=== PATIENT | male | born 1995 | race African-American/Black ===

== ENCOUNTER 2019-08-10 13:21 | Emergency (ER) | payer MEDICAID ==
[~2019-08-10] VITALS: Ht 190.5 cm; Wt 70.0 kg
[~2019-08-10 13:21] MED LIST: ALBUTEROL
[2019-08-10] MEDS ORDERED: ALBUTEROL (0.083%) 2.5MG/3ML NEB HHN STA (13:33)
[2019-08-10] MEDS ORDERED: METHYLPREDNISOLONE SOD SUCC 125 MG/2 ML VIAL IV STA (13:33)
[2019-08-10] MEDS ORDERED: IPRATROPIUM BROMIDE (0.02%) 0.5MG/2.5ML NEB HHN STA (13:33)
[2019-08-10] MEDS ORDERED: ALBUTEROL (0.083%) 2.5MG/3ML NEB ONE (14:26)
[2019-08-10] MEDS ORDERED: IPRATROPIUM BROMIDE (0.02%) 0.5MG/2.5ML NEB ONE (14:27)
[2019-08-10 14:31] LABS: BASOPHILS % 0.2 % (0.0-2.0); EOSINOPHILS % 4.4 % (0.0-5.0); HEMATOCRIT. 48.2 % (42.0-52.0); HEMOGLOBIN. 16.3 g/dL (14.0-18.0); LYMPHOCYTES % 9.4 % (20.0-50.0); MEAN CORPUSCULAR HEMOGLOBIN 29.8 pg (28.0-32.0); MEAN CORPUSCULAR VOLUME 88.3 fL (80.0-94.0); MONOCYTES % 7.6 % (2.0-8.0); NEUTROPHILS % 78.4 % (40.0-76.0); PLATELET 252 x1000/uL (130-400); RED BLOOD CELL COUNT 5.46 mill/uL (4.7-6.1); RED CELL DISTRIBUTION WIDTH 12.8 % (11.6-14.6)
[2019-08-10 14:38] LABS: CHLORIDE 108 mEq/L (98-107)
[2019-08-10] MEDS ORDERED: SODIUM CHLORIDE 0.9% 1,000 ML IV ONE (15:15)
[2019-08-10 16:49] VITALS: BP 137/68
== END 2019-08-10 16:54 | disposition home or self-care (01) ==
LOC: ER 13:21
DX: R06.03 Acute respiratory distress (principal); J45.901 Unspecified asthma with (acute) exacerbation; F12.10 Cannabis abuse, uncomplicated
CPT/HCPCS: 36415; 71045; 80053; 85025; 93005; 94640; 96374; 99284; J2930; J7030; J7611; Z7610

== ENCOUNTER 2019-09-09 21:03 | Emergency (ER) | payer MEDICAID ==
[~2019-09-09] VITALS: Ht 188 cm; Wt 68.0 kg
[2019-09-09 22:52] VITALS: BP 122/64
== END 2019-09-09 22:53 | disposition home or self-care (01) ==
LOC: ER 21:46
DX: S60.460A Insect bite (nonvenomous) of right index finger, initial encounter (principal); L03.011 Cellulitis of right finger; J45.909 Unspecified asthma, uncomplicated; W57.XXXA Bitten or stung by nonvenomous insect and other nonvenomous arthropods, initial encounter; Y93.89 Activity, other specified; Y92.89 Other specified places as the place of occurrence of the external cause; Y99.8 Other external cause status
CPT/HCPCS: 99281

== ENCOUNTER 2021-03-03 17:08 | Emergency (ER) | payer MEDICAID ==
[~2021-03-03] VITALS: Ht 188 cm; Wt 75.0 kg
[2021-03-03] MEDS ORDERED: P50 MT ×2 (20:24→20:34)
[2021-03-03] MEDS ORDERED: ALBU6.7H9 INH ×2 (20:24→20:34)
[2021-03-03] MEDS ORDERED: ALBU05 NEB ×2 (20:24→20:34)
[2021-03-03] MEDS ORDERED: FLUT100D INH ×2 (20:24→20:34)
[2021-03-03] MEDS ORDERED: PREDNISONE 20MG TABLET PO ONE (20:30)
[2021-03-03 20:35] VITALS: BP 127/71
== END 2021-03-03 20:39 | disposition home or self-care (01) ==
LOC: ER 17:08
DX: J45.901 Unspecified asthma with (acute) exacerbation (principal); Z76.0 Encounter for issue of repeat prescription; Z79.899 Other long term (current) drug therapy
CPT/HCPCS: 99283; J7512